=== PATIENT | female | born 1935 | race Caucasian/White ===

== ENCOUNTER → 2016-12-01 | Outpatient (CLI) | payer MEDICARE | END | disposition home or self-care (01) | LOC: PCVCCLINIC 13:20 | PROVIDERS: ATTEND Internal Medicine | DX: I63.9 Cerebral infarction, unspecified (principal); I10 Essential (primary) hypertension; E78.5 Hyperlipidemia, unspecified; I51.9 Heart disease, unspecified | CPT/HCPCS: 93005; G0463 ==